=== PATIENT | female | born 1940 | race Caucasian/White ===

== ENCOUNTER 2016-08-28 16:35 | Emergency (ER) | payer MEDICARE ==
[~2016-08-28 16:35] MED LIST: ARICEPT5 MG PO; CYMBALTA60 MG PO; EXELON1.5 MG PO; INDERAL40 MG PO; MOBIC15 MG PO; NAMENDA10 MG PO; OXYCODONE HCL10 MG PO; OXYCONTIN20 MG PO
== END 2016-08-28 16:36 | disposition left against medical advice (07) ==
LOC: ER 16:35
DX: Z53.21 Procedure and treatment not carried out due to patient leaving prior to being seen by health care provider (principal)

== ENCOUNTER 2016-08-31 23:02 | Inpatient (IN) | payer MEDICARE, MEDICAID ==
[~2016-08-31] VITALS: Ht 170.2 cm; Wt 60.0 kg
[2016-09-01] MEDS ORDERED: DURAGESIC25 MCG TOP (00:46)
[2016-09-01] MEDS ORDERED: VITAMIN D31000 UNI1 PO (00:47)
[2016-09-01] MEDS ORDERED: TUMS300 MG PO (01:04)
[2016-09-01] MEDS ORDERED: SYNTHROID100 MCG PO (01:05)
[2016-09-01] MEDS ORDERED: OXYCONTIN20 MG PO (01:12)
[2016-09-02] MEDS ORDERED: NAMENDA XR28 MG PO (16:02)
[2016-09-03] MEDS ORDERED: DIPHENHYDRAMINE50 M1 PO (09:49)
[2016-09-03] MEDS ORDERED: TYLENOL325 MG PO (10:21)
[2016-09-03] MEDS ORDERED: PERCOCET 325-51 TAB PO ×2 (13:33→13:34)
== END 2016-09-03 15:49 | DRG 440 ==
LOC: ER 23:02 → IP 09-01 01:22
PROVIDERS: ADMIT Family Medicine
DX: K85.90 Acute pancreatitis without necrosis or infection, unspecified (principal); G30.9 Alzheimer's disease, unspecified; F02.80 Dementia in other diseases classified elsewhere, unspecified severity, without behavioral disturbance, psychotic disturbance, mood disturbance, and anxiety; F32.9 Major depressive disorder, single episode, unspecified; E89.0 Postprocedural hypothyroidism; E87.6 Hypokalemia; S12.100S Unspecified displaced fracture of second cervical vertebra, sequela; G89.29 Other chronic pain; Z66 Do not resuscitate; R51 Headache
CPT/HCPCS: A9150; J1650; J2270; J2405

== ENCOUNTER 2016-09-16 10:50 | Observation (INO) | payer MEDICARE, MEDICAID ==
[~2016-09-16] VITALS: Ht 170.2 cm; Wt 60.6 kg
[~2016-09-16 10:50] MED LIST changes: +DIPHENHYDRAMINE50 M1 PO; +DURAGESIC25 MCG TOP; +NAMENDA XR28 MG PO; +PERCOCET 325-51 TAB PO; +SYNTHROID100 MCG PO; +TUMS300 MG PO; +TYLENOL325 MG PO; +VITAMIN D31000 UNI1 PO
[2016-09-17] MEDS ORDERED: OXYCODONE HCL10 MG PO (13:41)
[2016-09-17] MEDS ORDERED: OXYCONTIN20 MG PO (13:42)
[2016-09-17] MEDS ORDERED: VITAMIN D31000 UNI1 PO (13:47)
== END 2016-09-17 14:05 | disposition short-term general hospital (02) ==
LOC: ER 10:50 → IP 12:30 → OBS 12:30 → IP 12:30 → ER 12:30 → IP 09-17 14:03
PROVIDERS: ADMIT Family Medicine
DX: R07.9 Chest pain, unspecified (principal); G30.9 Alzheimer's disease, unspecified; F02.80 Dementia in other diseases classified elsewhere, unspecified severity, without behavioral disturbance, psychotic disturbance, mood disturbance, and anxiety; G89.29 Other chronic pain; M54.9 Dorsalgia, unspecified; M19.90 Unspecified osteoarthritis, unspecified site; I10 Essential (primary) hypertension; Z79.899 Other long term (current) drug therapy; Z90.710 Acquired absence of both cervix and uterus; Z98.890 Other specified postprocedural states
CPT/HCPCS: A9150; A9270; G0378; J1650; J2405